=== PATIENT | female | born 1955 | race Caucasian/White ===

== ENCOUNTER → 2018-06-22 11:45 | Outpatient (CLI) | payer OTHER, SELFPAY ==
--- NOTE | 2018-06-22 11:47 | DI.MG.S_ITS ---
BILATERAL DIGITAL SCREENING MAMMOGRAM 3D/2D WITH CAD: 06/22/2018 CLINICAL: Routine screening. Comparison is made to exams dated: 04/19/2017 mammogram and 02/16/2015 mammogram - [facility]. The tissue of both breasts is heterogeneously dense. This may lower the sensitivity of mammography. Current study was also evaluated with a Computer Aided Detection (CAD) system. No significant masses, calcifications, or other findings are seen in either breast. There has been no significant interval change. IMPRESSION: NEGATIVE There is no mammographic evidence of malignancy. A 1 year screening mammogram is recommended. This exam was interpreted at Station ID: [id number]. NOTE: For mammograms, a report in lay terms will be sent to the patient. Approximately 15% of breast malignancies will not be visualized mammographically. In the management of a palpable breast mass, a negative mammogram must not discourage biopsy of a clinically suspicious lesion. Electronically Signed By: Malena [email or web address]:06/24/2018 09:52:05 letter sent: Normal Exam ACR BI-RADS Category 1: Negative [id number]
== END ==
PROVIDERS: PCP Family Medicine; Visit Provider Family Medicine
DX: Z12.31 Encounter for screening mammogram for malignant neoplasm of breast (principal)
CPT/HCPCS: 77063; 77067

== ENCOUNTER 2021-08-22 16:24 | Emergency (ER) | payer OTHER, SELFPAY ==
[2021-08-22] VITALS (12 sets, daily range): BP systolic 120–173; BP diastolic 74–84; PULSE 74–95; RESP 17–27; TEMP 36.7; O2SAT 95–99
--- NOTE | 2021-08-22 16:38 | DI.RAD.S_ITS ---
PROCEDURE: XR ABDOMEN 1V INDICATIONS: Flu like symptoms TECHNIQUE: One view of the abdomen acquired. COMPARISON: None. FINDINGS: Surgical changes and devices: Clips in the right upper abdomen. Bowel: Prominent gas in the region of the stomach. No dilated loops of bowel are identified. Fecal residue is seen. Soft tissues: No suspicious abdominal calcifications. Visualized solid organ contours appear normal in size. Bones: No suspicious bony lesions. Mild bilateral hip DJD. IMPRESSION: Nonobstructive bowel gas pattern. Somewhat prominent gas in the region of the stomach. Dictated by: Germain Perez M.D. on 08/22/2021 at 17:12 Approved by: Germain Perez M.D. on 08/22/2021 at 17:13
--- NOTE | 2021-08-22 16:52 | DI.RAD.S_ITS ---
PROCEDURE: XR CHEST 1V INDICATIONS: CHEST AND ABDOMEN PAIN TECHNIQUE: One view of the chest was acquired. COMPARISON: [facility], CR, XR ABDOMEN 1V, 08/22/2021, 16:43. FINDINGS: Surgical changes and devices: None. Lungs and pleura: Possible calcified granuloma in the left upper lobe. Lungs otherwise appear clear. No pleural effusions or pneumothorax. Mediastinum: Mediastinal contours appear normal. Heart size is normal. Bones and chest wall: No suspicious bony lesions. Overlying soft tissues appear unremarkable. IMPRESSION: No acute cardiopulmonary abnormality. Dictated by: Germain Perez M.D. on 08/22/2021 at 17:13 Approved by: Germain Perez M.D. on 08/22/2021 at 17:14
[2021-08-22] MEDS: MAG HYDROX/ALUMINUM/SIMETH SUS 20 ML, LIDOCAINE VISCOUS 2% 15 ML PO (17:29)
[2021-08-22] MEDS: FAMOTIDINE 20 MG/2 ML VIAL IV (17:30)
--- NOTE | 2021-08-22 18:23 | ED.CHESTPAIN ---
HPI - Chest Pain <Alistair Fairchild PA-C - Last Filed: 08/22/21 21:06> General Chief Complaint: Chest Pain Stated Complaint: CHEST PAIN TO LEFT ARM Time Seen by Provider: 08/22/21 16:50 Source: patient Mode of arrival: Ambulatory Limitations: no limitations History of Present Illness HPI narrative: 66-year-old female with a history of hypercholesterolemia, hypothyroidism, anxiety, depression presents to the ED with 10 days of substernal chest pain. Patient states that she had a endoscopy done on 08/11/2021, following which she started experiencing the substernal pain that is now radiating to her upper back bilaterally. Patient endorses nausea. Denies fever, chills, shortness of breath, cough, nausea, vomiting, abdominal pain, dysuria, lightheadedness, dizziness, syncope. Patient has a history of GERD. Endoscopy showed eosinophilic esophagitis. Patient has had a fundoplication procedure in the past. Related Data Home Medications Medication Instructions Recorded Confirmed [SUDAFED PE OTC] 10 mg PO BID #0 07/19/17 fluticasone propionate 50 1 spray INTRANASAL #0 07/19/17 mcg/actuation nasal spray,suspension multivitamin (Multiple Vitamins) #0 07/19/17 polyvinyl alcohol-povidone 0.5 1 drp OPHTH QID PRN #0 07/19/17 %-0.6 % eye drops (Artificial Tears (polyvinyl alcohol/povidone)) Previous Rx's Medication Instructions Recorded hydrocortisone 2.5 % topical cream 1 blake MO BID #30 gm 12/28/17 with perineal applicator (Proctozone-HC) polyethylene glycol 3350 17 gram 17 gm PO QDAY PRN #510 gm 12/28/17 oral powder packet (Miralax) Allergies Allergy/AdvReac Type Severity Reaction Status Date / Time prochlorperazine AdvReac Intermediate HYPER Verified 08/22/21 17:29 [From COMPAZINE] Review of Systems <Alistair Fairchild PA-C - Last Filed: 08/22/21 21:06> Review of Systems ROS Unobtainable: All systems reviewed & are unremarkable except as noted in HPI and below Constitutional Constitutional: Denies chills, Denies fatigue, Denies fever(s), Denies frequent falls, Denies lethargy and Denies weakness Eyes Eyes: Denies change in vision, Denies eye discharge, Denies irritation and Denies loss of vision ENT Ears, Nose, Mouth, and Throat: Denies change in voice, Denies dizziness, Denies neck pain, Denies sore throat and Denies throat swelling Comments: Globus sensation in the throat Cardiovascular Cardiovascular: Reports chest pain, Denies irregular heart rhythm, Denies lightheadedness, Denies palpitations, Denies dyspnea, Denies dyspnea on exertion and Denies orthopnea Comments: Substernal chest pain radiating to bilateral upper back Respiratory Respiratory: Denies cough, Denies dyspnea, Denies dyspnea on exertion and Denies wheezing Gastrointestinal Gastrointestinal: Reports abdominal pain, Denies change in bowel habits, Denies diarrhea, Denies nausea and Denies vomiting Comments: Epigastric pain Genitourinary Genitourinary: Denies hematuria, Denies flank pain, Denies urinary incontinence and Denies urinary urgency Musculoskeletal Musculoskeletal: Denies back pain, Denies muscle weakness, Denies neck pain, Denies numbness and Denies tingling Integumentary/Breasts Skin/Breast: Denies pruritus, Denies erythema, Denies rash and Denies wounds Neurologic Neurologic: Denies behavioral changes, Denies confusion, Denies dizziness, Denies frequent falls, Denies loss of vision, Denies numbness, Denies tingling and Denies weakness Psychiatric Psychiatric: Denies anxiety, Denies behavioral changes, Denies confusion, Denies depression, Denies homicidal ideation and Denies suicidal ideation Endocrine Endocrine: Denies fatigue, Denies flushing and Denies palpitations Hematologic/Lymphatic Hematologic/Lymphatic: Denies easy bruising Allergic/Immunologic Allergic/Immunologic: Denies urticaria, Denies throat swelling and Denies wheezing Patient History <Alistair Fairchild PA-C - Last Filed: 08/22/21 21:06> Surgical History Status post appendectomy Status post delivery Status post cholecystectomy Family History Brother Age: 69 Diabetes mellitus Hypertension High cholesterol Brother Age: 64 Diabetes mellitus Grandfather Heart disease Mother Age: 88 Dementia Hypertension Diabetes mellitus Heart disease High cholesterol Hypothyroid Grandfather Cancer Grandmother Heart disease Social History Smoking Status: Former smoker Smoking Status: Former smoker alcohol intake frequency: 0-2 drinks per day Substance Use Type: does not use Exam <Alistair Fairchild PA-C - Last Filed: 08/22/21 21:06> Initial Vital Signs Initial Vital Signs: Vital Signs Temperature 98.1 F 08/22/21 16:35 Pulse Rate 95 H 08/22/21 16:35 Respiratory Rate 19 08/22/21 16:35 Blood Pressure 173/84 H 08/22/21 16:35 Pulse Oximetry 99 08/22/21 16:35 Const General: cooperative and healthy appearing [facility] Head: normal to inspection Eyes General: appearance normal, both eyes and all related structures Neck Neck: normal visual inspection Chest Chest: normal inspection of the chest Resp Effort & Inspection: normal respiratory effort Auscultation: clear to auscultation bilaterally Cardio Rate: regular rate Rhythm: regular rhythm GI Inspection: normal to inspection and distended Palpation: soft Other: Abdomen is soft, slightly distended, tender to palpation in the epigastric and right lower quadrant General: No CVA tenderness Skin General: no rashes or lesions noted Neuro General: patient alert, patient awake and patient oriented x3 <Milagro Aguilar MD - Last Filed: 08/22/21 22:36> Initial Vital Signs Initial Vital Signs: Vital Signs Temperature 98.1 F 08/22/21 16:35 Pulse Rate 95 H 08/22/21 16:35 Respiratory Rate 19 08/22/21 16:35 Blood Pressure 173/84 H 08/22/21 16:35 Pulse Oximetry 99 08/22/21 16:35 Scores <Alistair Fairchild PA-C - Last Filed: 08/22/21 21:06> HEART Score Heart Score history: Slightly Suspicious Heart Score EKG: Normal Heart Score Age: > or = 65 years old Heart Score risk factors: 1-2 risk factors Heart Score troponin: < or = to normal limit Heart Score Total: 3 <Milagro Aguilar MD - Last Filed: 08/22/21 22:36> HEART Score Heart Score Total: 3 Course <Alistair Fairchild PA-C - Last Filed: 08/22/21 21:06> Course Course Narrative: Chest x-ray, EKG, labs within normal limits. First troponin negative. Patient's chest pain better after GI cocktail, Pepcid. Patient still complaining of epigastric pain. Abdomen x-ray showed prominent gas in the stomach region. Repeat abdominal exam shows patient is tender to palpation in the epigastric and right lower quadrant. Will do a CT abdomen pelvis with contrast. CT shows extensive bowel gas in the transverse colon. No other acute findings. Will give patient a glycerin suppository, sent home with magnesium citrate. Will repeat troponin prior to discharge. Orders Ordered: ED Orders 08/22/21 16:35 EKG-12 Lead Stat 08/22/21 16:38 XR abdomen 1V Stat 08/22/21 16:52 XR chest 1V Stat 08/22/21 18:20 BNP [NT-proBNP (BNP-Adult 18+)] Stat CBC Auto Diff [Complete Blood Count AUTO DIFF] Stat CMP [Comprehensive Metabolic Panel] Stat Lactate (Lactic Acid) Stat Lipase Stat Troponin I Stat 08/22/21 19:23 CT abdomen pelvis w con Stat 08/22/21 21:13 Troponin I Stat Discontinued Medications Al Hydrox/Mg Hydrox/Simethicone 20 ml/ Lidocaine HCl 15 ml 0 ml PO NOW ONE Stop: 08/22/21 17:14 Last Admin: 08/22/21 17:29 Dose: 35 ml Documented by: CONI Famotidine (Famotidine 20 Mg/2 Ml Vial) 20 mg IV NOW CAROLA Famotidine (Famotidine 20 Mg/2 Ml Vial) 20 mg IV NOW STA Stop: 08/22/21 17:23 Last Admin: 08/22/21 17:30 Dose: 20 mg Documented by: CONI Glycerin (Glycerin Supp Adult 1 Supp) 1 each MO NOW ONE Stop: 08/22/21 20:58 Last Admin: 08/22/21 21:53 Dose: 1 each Documented by: JENN Ketorolac Tromethamine (Ketorolac 30 Mg/Ml Vial) 15 mg IV NOW ONE Stop: 08/22/21 20:20 Last Admin: 08/22/21 20:21 Dose: 15 mg Documented by: MALORIE Vital Signs Vital signs: Vital Signs - 8 hr 08/22/21 16:35 08/22/21 17:43 08/22/21 18:00 Temperature 98.1 F Pulse Rate 95 H 84 86 Respiratory Rate 19 20 20 Blood Pressure 173/84 H 128/80 Pulse Oximetry 99 97 97 08/22/21 18:30 08/22/21 19:00 08/22/21 19:30 Temperature Pulse Rate 79 74 74 Respiratory Rate 20 19 23 Blood Pressure 133/75 120/74 137/77 Pulse Oximetry 98 98 98 08/22/21 20:00 08/22/21 20:30 Temperature Pulse Rate 81 77 Respiratory Rate 19 17 Blood Pressure Pulse Oximetry 98 98 <Milagro Aguilar MD - Last Filed: 08/22/21 22:36> Orders Ordered: ED Orders 08/22/21 16:35 EKG-12 Lead Stat 08/22/21 16:38 XR abdomen 1V Stat 08/22/21 16:52 XR chest 1V Stat 08/22/21 18:20 BNP [NT-proBNP (BNP-Adult 18+)] Stat CBC Auto Diff [Complete Blood Count AUTO DIFF] Stat CMP [Comprehensive Metabolic Panel] Stat Lactate (Lactic Acid) Stat Lipase Stat Troponin I Stat 08/22/21 19:23 CT abdomen pelvis w con Stat 08/22/21 21:13 Troponin I Stat Discontinued Medications Al Hydrox/Mg Hydrox/Simethicone 20 ml/ Lidocaine HCl 15 ml 0 ml PO NOW ONE Stop: 08/22/21 17:14 Last Admin: 08/22/21 17:29 Dose: 35 ml Documented by: CONI Famotidine (Famotidine 20 Mg/2 Ml Vial) 20 mg IV NOW CAROLA Famotidine (Famotidine 20 Mg/2 Ml Vial) 20 mg IV NOW STA Stop: 08/22/21 17:23 Last Admin: 08/22/21 17:30 Dose: 20 mg Documented by: CONI Glycerin (Glycerin Supp Adult 1 Supp) 1 each MO NOW ONE Stop: 08/22/21 20:58 Last Admin: 08/22/21 21:53 Dose: 1 each Documented by: JENN Ketorolac Tromethamine (Ketorolac 30 Mg/Ml Vial) 15 mg IV NOW ONE Stop: 08/22/21 20:20 Last Admin: 08/22/21 20:21 Dose: 15 mg Documented by: MALORIE Vital Signs Vital signs: Vital Signs - 8 hr 08/22/21 16:35 08/22/21 17:43 08/22/21 18:00 Temperature 98.1 F Pulse Rate 95 H 84 86 Respiratory Rate 19 20 20 Blood Pressure 173/84 H 128/80 Pulse Oximetry 99 97 97 08/22/21 18:30 08/22/21 19:00 08/22/21 19:30 Temperature Pulse Rate 79 74 74 Respiratory Rate 20 19 23 Blood Pressure 133/75 120/74 137/77 Pulse Oximetry 98 98 98 08/22/21 20:00 08/22/21 20:30 Temperature Pulse Rate 81 77 Respiratory Rate 19 17 Blood Pressure Pulse Oximetry 98 98 MDM - Chest Pain <Alistair Fairchild PA-C - Last Filed: 08/22/21 21:06> Lab Data Lab results narrative: Labs within normal limits Result diagrams: 08/22/21 18:20 08/22/21 18:20 Labs: Lab Results 08/22/21 08/22/21 08/22/21 Range/Units 18:20 18:20 18:20 WBC 5.9 (4.5-11.0) X10^3/uL RBC 4.11 (4.0-5.2) X10^6/uL Hgb 13.7 (12.0-16.0) g/dL Hct 40.2 (36-46) % MCV 97.8 (80-100) fL MCH 33.3 (26-34) PG MCHC 34.1 (30-36) % RDW 13.2 (11.6-14.8) % Plt Count 231 (150-400) X10^3/uL Neut % (Auto) 52.7 (50-75) % Lymph % (Auto) 37.0 (25-40) % [place] % (Auto) 7.3 (3-14) % Eos % (Auto) 1.9 L (2-4) % Baso % (Auto) 1.1 (0-2) % Neut # (Auto) 3100 (0101-1913) /uL Lymph # (Auto) 2200 (2188-8371) /uL [place] # (Auto) 400 (0-900) /uL Eos # (Auto) 100 (0-450) /uL Baso # (Auto) 100 (0-100) /uL Sodium 138 (137-145) mmol/L Potassium 4.5 (3.4-5.1) mmol/L Chloride 102 (98-107) mmol/L Carbon Dioxide 29 (22-32) mmol/L BUN 14 (7-17) mg/dL Creatinine 0.66 (0.52-1.04) mg/dL Estimated GFR > 60.0 (>60) mL/min BUN/Creatinine Ratio 21.2 (6-22) Glucose 90 (80-110) mg/dL Lactate 1.1 (0.7-2.1) mmol/L Calcium 9.3 (8.4-10.2) mg/dL Total Bilirubin 0.3 (0.2-1.3) mg/dL AST 34 (14-36) IU/L ALT 29 (<35) IU/L Alkaline Phosphatase 78 (38-126) U/L Troponin I (0.01-0.034) ng/mL NT-Pro-B Natriuret Pep (<125) pg/mL Total Protein 7.4 (6.3-8.2) g/dL Albumin 4.5 (3.5-5.0) g/dL Globulin 2.9 (1.7-4.1) g/dL Albumin/Globulin Ratio 1.6 (1.0-2.8) Lipase 131 (23-300) U/L 08/22/21 08/22/21 Range/Units 18:20 21:13 WBC (4.5-11.0) X10^3/uL RBC (4.0-5.2) X10^6/uL Hgb (12.0-16.0) g/dL Hct (36-46) % MCV (80-100) fL MCH (26-34) PG MCHC (30-36) % RDW (11.6-14.8) % Plt Count (150-400) X10^3/uL Neut % (Auto) (50-75) % Lymph % (Auto) (25-40) % [place] % (Auto) (3-14) % Eos % (Auto) (2-4) % Baso % (Auto) (0-2) % Neut # (Auto) (3217-3811) /uL Lymph # (Auto) (0240-5392) /uL [place] # (Auto) (0-900) /uL Eos # (Auto) (0-450) /uL Baso # (Auto) (0-100) /uL Sodium (137-145) mmol/L Potassium (3.4-5.1) mmol/L Chloride (98-107) mmol/L Carbon Dioxide (22-32) mmol/L BUN (7-17) mg/dL Creatinine (0.52-1.04) mg/dL Estimated GFR (>60) mL/min BUN/Creatinine Ratio (6-22) Glucose (80-110) mg/dL Lactate (0.7-2.1) mmol/L Calcium (8.4-10.2) mg/dL Total Bilirubin (0.2-1.3) mg/dL AST (14-36) IU/L ALT (<35) IU/L Alkaline Phosphatase (38-126) U/L Troponin I < 0.012 < 0.012 (0.01-0.034) ng/mL NT-Pro-B Natriuret Pep 29 (<125) pg/mL Total Protein (6.3-8.2) g/dL Albumin (3.5-5.0) g/dL Globulin (1.7-4.1) g/dL Albumin/Globulin Ratio (1.0-2.8) Lipase (23-300) U/L Urine Dip Bedside Urine Glucose Negative Bedside Urine Bilirubin - Negative Bedside Urine Ketone - Negative Urine Specific [place] 1.010 Bedside Urine Occult Blood - Negative Bedside Urine pH 6.0 Bedside Urine Protein - Negative Bedside Urine Urobilinogen - Negative Bedside Urine Nitrite - Negative Bedside Urine Leukocytes - Negative Esterase Imaging Data Abdominal x-ray: Radiologist's Impression: PROCEDURE:? XR ABDOMEN 1V ? INDICATIONS:? Flu like symptoms ? TECHNIQUE:? One view of the abdomen acquired.? ? COMPARISON:? None. ? FINDINGS:? ? Surgical changes and devices:? Clips in the right upper abdomen. ? Bowel:? Prominent gas in the region of the stomach.? No dilated loops of bowel are identified.? Fecal residue is seen. ? Soft tissues:? No suspicious abdominal calcifications.? Visualized solid organ contours appear normal in size.? ? Bones:? No suspicious bony lesions.? Mild bilateral hip DJD.? ? IMPRESSION:? Nonobstructive bowel gas pattern.? Somewhat prominent gas in the region of the stomach. ? ? Dictated by: Germain Perez M.D. on 08/22/2021 at 17:12 ? ? Approved by: Germain Perez M.D. on 08/22/2021 at 17:13 ? Chest x-ray: Radiologist's Impression: PROCEDURE:? XR CHEST 1V ? INDICATIONS:? CHEST AND ABDOMEN PAIN ? TECHNIQUE:? One view of the chest was acquired.? ? COMPARISON:? [facility], XR ABDOMEN 1V, 08/22/2021, 16:43. ? FINDINGS:? ? Surgical changes and devices:? None.? ? Lungs and pleura:? Possible calcified granuloma in the left upper lobe.? Lungs otherwise appear clear.? No pleural effusions or pneumothorax.? ? Mediastinum:? Mediastinal contours appear normal.? Heart size is normal.? ? Bones and chest wall:? No suspicious bony lesions.? Overlying soft tissues appear unremarkable.? ? IMPRESSION:? No acute cardiopulmonary abnormality. ? ? ? Dictated by: Germain Perez M.D. on 08/22/2021 at 17:13 ? ? Approved by: Germain Perez M.D. on 08/22/2021 at 17:14 ? CT scan - abdomen/pelvis: Radiologist's Impression: PROCEDURE:? CT ABDOMEN PELVIS W CON ? INDICATIONS:? Distended abdomen ? TECHNIQUE:? After the administration of oral and IV contrast, axial sections were acquired from the lung bases to the pubic symphysis.? Coronal and sagittal reformats were performed.? For radiation dose reduction, the following was used:? automated exposure control, adjustment of mA and/or kV according to patient size. ? COMPARISON:? [facility], XR ABDOMEN 1V, 08/22/2021, 16:43. ? FINDINGS:? Image quality:? Excellent.? ? Lung bases:? No pleural effusion.? Small hiatal hernia.? ? Heart:? No significant findings. ? ? ABDOMEN: Liver:? No focal lesion. Gallbladder:? Surgically absent. Biliary ducts:? Unremarkable.? ? Pancreas:? Unremarkable.? ? Spleen:? Unremarkable.? ? Adrenal Glands:? No nodule. Kidneys and Ureters:? No hydronephrosis. ? Stomach and Bowel:? No small bowel obstruction.? The appendix is not identified.? Prominent stool in the right colon.? Prominent bowel gas in the transverse colon. Peritoneum:? No abnormal intraperitoneal fluid.? No free air.? ? Ventral Wall: ? No hernia.? Abdominal Nodes:? No retroperitoneal or mesenteric adenopathy by size criteria.? Vessels:? Aorta and inferior vena cava are normal in size.? ? PELVIS: Pelvic Organs:? Anteverted uterus.? ? Bladder:? No stones.? ? Pelvic Nodes: No enlarged lymph nodes.? Miscellaneous: No inguinal hernias are seen. ? ? ? Bones:? Multilevel DDD.? No compression fracture.? No aggressive appearing lesion. ? ? IMPRESSION:? 1. No small bowel obstruction.? ? 2. Prominent bowel gas in the transverse colon.? Prominent stool in the right colon. ? 3. No free fluid.? No pneumoperitoneum. ? ? ? Dictated by: Germain Perez M.D. on 08/22/2021 at 20:41 ? ? Approved by: Germain Perez M.D. on 08/22/2021 at 20:45 ? ECG Data Interpretation: Normal sinus rhythm, no axis deviation, no acute ST-T changes. MDM Narrative Medical decision making narrative: 66-year-old female with a history of hypercholesterolemia, hypothyroidism, anxiety, depression presents to the ED with 10 days of substernal chest pain. Concern for ACS versus pneumonia versus GERD versus gastritis vs bowel obstruction. Will order EKG, chest x-ray, labs, troponin, lipase, NT proBNP, abdominal XR. Will give GI cocktail, Pepcid AC for symptoms. Will reassess. <Milagro Aguilar MD - Last Filed: 08/22/21 22:36> Lab Data Labs: Lab Results 08/22/21 08/22/21 08/22/21 Range/Units 18:20 18:20 18:20 WBC 5.9 (4.5-11.0) X10^3/uL RBC 4.11 (4.0-5.2) X10^6/uL Hgb 13.7 (12.0-16.0) g/dL Hct 40.2 (36-46) % MCV 97.8 (80-100) fL MCH 33.3 (26-34) PG MCHC 34.1 (30-36) % RDW 13.2 (11.6-14.8) % Plt Count 231 (150-400) X10^3/uL Neut % (Auto) 52.7 (50-75) % Lymph % (Auto) 37.0 (25-40) % [place] % (Auto) 7.3 (3-14) % Eos % (Auto) 1.9 L (2-4) % Baso % (Auto) 1.1 (0-2) % Neut # (Auto) 3100 (9110-8088) /uL Lymph # (Auto) 2200 (9837-8995) /uL [place] # (Auto) 400 (0-900) /uL Eos # (Auto) 100 (0-450) /uL Baso # (Auto) 100 (0-100) /uL Sodium 138 (137-145) mmol/L Potassium 4.5 (3.4-5.1) mmol/L Chloride 102 (98-107) mmol/L Carbon Dioxide 29 (22-32) mmol/L BUN 14 (7-17) mg/dL Creatinine 0.66 (0.52-1.04) mg/dL Estimated GFR > 60.0 (>60) mL/min BUN/Creatinine Ratio 21.2 (6-22) Glucose 90 (80-110) mg/dL Lactate 1.1 (0.7-2.1) mmol/L Calcium 9.3 (8.4-10.2) mg/dL Total Bilirubin 0.3 (0.2-1.3) mg/dL AST 34 (14-36) IU/L ALT 29 (<35) IU/L Alkaline Phosphatase 78 (38-126) U/L Troponin I (0.01-0.034) ng/mL NT-Pro-B Natriuret Pep (<125) pg/mL Total Protein 7.4 (6.3-8.2) g/dL Albumin 4.5 (3.5-5.0) g/dL Globulin 2.9 (1.7-4.1) g/dL Albumin/Globulin Ratio 1.6 (1.0-2.8) Lipase 131 (23-300) U/L 08/22/21 08/22/21 Range/Units 18:20 21:13 WBC (4.5-11.0) X10^3/uL RBC (4.0-5.2) X10^6/uL Hgb (12.0-16.0) g/dL Hct (36-46) % MCV (80-100) fL MCH (26-34) PG MCHC (30-36) % RDW (11.6-14.8) % Plt Count (150-400) X10^3/uL Neut % (Auto) (50-75) % Lymph % (Auto) (25-40) % [place] % (Auto) (3-14) % Eos % (Auto) (2-4) % Baso % (Auto) (0-2) % Neut # (Auto) (4082-6381) /uL Lymph # (Auto) (2172-5046) /uL [place] # (Auto) (0-900) /uL Eos # (Auto) (0-450) /uL Baso # (Auto) (0-100) /uL Sodium (137-145) mmol/L Potassium (3.4-5.1) mmol/L Chloride (98-107) mmol/L Carbon Dioxide (22-32) mmol/L BUN (7-17) mg/dL Creatinine (0.52-1.04) mg/dL Estimated GFR (>60) mL/min BUN/Creatinine Ratio (6-22) Glucose (80-110) mg/dL Lactate (0.7-2.1) mmol/L Calcium (8.4-10.2) mg/dL Total Bilirubin (0.2-1.3) mg/dL AST (14-36) IU/L ALT (<35) IU/L Alkaline Phosphatase (38-126) U/L Troponin I < 0.012 < 0.012 (0.01-0.034) ng/mL NT-Pro-B Natriuret Pep 29 (<125) pg/mL Total Protein (6.3-8.2) g/dL Albumin (3.5-5.0) g/dL Globulin (1.7-4.1) g/dL Albumin/Globulin Ratio (1.0-2.8) Lipase (23-300) U/L Urine Dip Bedside Urine Glucose Negative Bedside Urine Bilirubin - Negative Bedside Urine Ketone - Negative Urine Specific [place] 1.010 Bedside Urine Occult Blood - Negative Bedside Urine pH 6.0 Bedside Urine Protein - Negative Bedside Urine Urobilinogen - Negative Bedside Urine Nitrite - Negative Bedside Urine Leukocytes - Negative Esterase MDM Narrative Medical decision making narrative: 66-year-old female with a history of hypercholesterolemia, hypothyroidism, anxiety, depression presents to the ED with 10 days of substernal chest pain. Concern for ACS versus pneumonia versus GERD versus gastritis vs bowel obstruction. Will order EKG, chest x-ray, labs, troponin, lipase, NT proBNP, abdominal XR. Will give GI cocktail, Pepcid AC for symptoms. Will reassess. 56-year-old woman complains of chest pain and right lower quadrant pain. Chest pain workup is unremarkable with repeated troponin. EKG is reassuring. CT scan of the abdomen eventually shows significant amount of stool in the right lower quadrant and a fairly dramatic amount of air throughout the remainder of the colon. She is given a glycerin suppository in the emergency department. She has had a small amount of gas with this. She will be sent home with a bottle of magnesium citrate. Advised her to continue the MiraLax that she does take daily after she is able to clean out her entire colon. recommended that she follow-up with her primary care provider Discharge Plan Departure Patient Disposition: Home Clinical Impression: Abdominal pain, Chest pain, non-cardiac, Constipation Instructions: DI for Constipation Activity Restrictions/Additional Instructions: Thank you for coming in today Fortunately, there is no evidence of internal bleeding, heart attack or heart attack like syndrome. Your CT scan suggests a significant amount of stool in the right lower quadrant which is 1 of the areas your hurting. You have a significant amount of gas through the middle part and the descending part of your colon on the left side that likely is causing that pain going up to her shoulder. If you feel the urge to fart, let yourself do that. All that gas passed to come out. I have given you a bottle of magnesium citrate, this will pull extra water into your colon and hopefully allow all that stool to clean out along with the gas. Once you have basically ?reset? it is important to continue with your current dose of MiraLax to try and prevent this from happening again. If you have worsening symptoms or complaints, please return to the ER Prescriptions: No Action [SUDAFED PE OTC] 10 mg PO BID Qty: 0 0RF multivitamin [Multiple Vitamins] 1 EACH tablet Qty: 0 0RF polyvinyl alcohol-povidone [Artificial Tears(pvalch-povid)] 15 ML drops 1 drp OPHTH QID PRNQty: 0 0RF fluticasone propionate 16 GM spray,suspension 1 spray Intranasal Qty: 0 0RF polyethylene glycol 3350 [Miralax] 17 GM powder in packet 17 gm PO QDAY PRNQty: 510 3RF hydrocortisone [Proctozone-HC] 2.5 % cream with perineal applicator 1 blake [place] BID Qty: 30 2RF Referrals: Rod Mena MD [Primary Care Provider] -
[2021-08-22 18:38] LABS: Add Manual Diff / Slide Review NO; Basophils Absolute Auto 100 /uL (0-100); Basophils Percent Auto 1.1 % (0-2); Eosinophils Absolute Auto 100 /uL (0-450); Eosinophils Percent Auto 1.9 % (2-4); Hematocrit 40.2 % (36-46); Hemoglobin 13.7 g/dL (12.0-16.0); Lymphocytes Absolute Auto 2200 /uL (1100-4500); Mean Corpuscular HGB Conc 34.1 % (30-36); Mean Corpuscular Hemoglobin 33.3 PG (26-34); Mean Corpuscular Volume 97.8 fL (80-100); Monocytes Absolute Auto 400 /uL (0-900); Monocytes Percent Auto 7.3 % (3-14); Neutrophils Absolute Auto 3100 /uL (1500-7000); Neutrophils Percent Auto 52.7 % (50-75); Platelet Count 231 X10^3/uL (150-400); Red Blood Cell Count 4.11 X10^6/uL (4.0-5.2); Red Cell Distribution Width 13.2 % (11.6-14.8); White Blood Cell Count 5.9 X10^3/uL (4.5-11.0)
[2021-08-22 18:44] LABS: Alanine Aminotransferase 29 IU/L (<35); Albumin 4.5 g/dL (3.5-5.0); Albumin Globulin Ratio 1.6 (1.0-2.8); Alkaline Phosphatase 78 U/L (38-126); Aspartate Aminotransferase 34 IU/L (14-36); BUN Creatinine Ratio 21.2 (6-22); Bilirubin Total 0.3 mg/dL (0.2-1.3); Blood Urea Nitrogen 14 mg/dL (7-17); Calcium 9.3 mg/dL (8.4-10.2); Carbon Dioxide 29 mmol/L (22-32); Chloride 102 mmol/L (98-107); Estimated Glomerular Filt Rate > 60.0 mL/min (>60); Globulin 2.9 g/dL (1.7-4.1); Glucose 90 mg/dL (80-110); HEMOLYSIS < 15 (0-50); Lipase 131 U/L (23-300); Potassium 4.5 mmol/L (3.4-5.1); Sodium 138 mmol/L (137-145); Total Protein 7.4 g/dL (6.3-8.2)
[2021-08-22 18:46] LABS: Lactate (Lactic Acid) 1.1 mmol/L (0.7-2.1)
[2021-08-22 18:56] LABS: NT-proBNP (BNP-Adult 18+) 29 pg/mL (<125); Troponin I < 0.012 ng/mL (0.01-0.034)
--- NOTE | 2021-08-22 19:23 | DI.CT.S_ITS ---
PROCEDURE: CT ABDOMEN PELVIS W CON INDICATIONS: Distended abdomen TECHNIQUE: After the administration of oral and IV contrast, axial sections were acquired from the lung bases to the pubic symphysis. Coronal and sagittal reformats were performed. For radiation dose reduction, the following was used: automated exposure control, adjustment of mA and/or kV according to patient size. COMPARISON: [facility], CR, XR ABDOMEN 1V, 08/22/2021, 16:43. FINDINGS: Image quality: Excellent. Lung bases: No pleural effusion. Small hiatal hernia. Heart: No significant findings. ABDOMEN: Liver: No focal lesion. Gallbladder: Surgically absent. Biliary ducts: Unremarkable. Pancreas: Unremarkable. Spleen: Unremarkable. Adrenal Glands: No nodule. Kidneys and Ureters: No hydronephrosis. Stomach and Bowel: No small bowel obstruction. The appendix is not identified. Prominent stool in the right colon. Prominent bowel gas in the transverse colon. Peritoneum: No abnormal intraperitoneal fluid. No free air. Ventral Wall: No hernia. Abdominal Nodes: No retroperitoneal or mesenteric adenopathy by size criteria. Vessels: Aorta and inferior vena cava are normal in size. PELVIS: Pelvic Organs: Anteverted uterus. Bladder: No stones. Pelvic Nodes: No enlarged lymph nodes. Miscellaneous: No inguinal hernias are seen. Bones: Multilevel DDD. No compression fracture. No aggressive appearing lesion. IMPRESSION: 1. No small bowel obstruction. 2. Prominent bowel gas in the transverse colon. Prominent stool in the right colon. 3. No free fluid. No pneumoperitoneum. Dictated by: Germain Perez M.D. on 08/22/2021 at 20:41 Approved by: Germain Perez M.D. on 08/22/2021 at 20:45
[2021-08-22] MEDS: KETOROLAC 30 MG/ML VIAL 15 MG IV (20:21)
--- NOTE | 2021-08-22 20:50 | PC.NURSE ---
report received from POOL Velasco. Pt resting on stretcher and reports feeling better post GI cocktail and pepcid. continues to endorse some epigastric discomfort. given torodol for pain and pain improved. awaiting 2nd troponin, REGGIE.
[2021-08-22 21:47] LABS: Troponin I < 0.012 ng/mL (0.01-0.034)
[2021-08-22] MEDS: GLYCERIN SUPP ADULT 1 SUPP 1 EACH PR (21:53)
[2021-08-22] MEDS: MAGNESIUM CITRATE 300 ML SOLUTION PO (22:44)
== END 2021-08-22 22:52 | disposition home or self-care (01) ==
PROVIDERS: Emergency Provider Student in an Organized Health Care Education/Training Program; PCP Family Medicine
DX: R07.9 Chest pain, unspecified (principal); R10.13 Epigastric pain; K59.00 Constipation, unspecified
CPT/HCPCS: 36415; 71045; 74018; 74177; 80053; 81003; 83605; 83690; 83880; 84484; 85025; 93005; 96374; 96375; 99284; J1885